=== PATIENT | female | born 1990 | race Caucasian/White ===

== ENCOUNTER 2018-11-23 10:32 | Outpatient (CLI) | payer OTHER ==
--- NOTE | 2018-11-23 13:48 | ULT ---
OBSTETRICAL ULTRASOUND: Date: 11/23/2018 COMPARISON: None. HISTORY: 27-year-old female undergoing assessment of anatomy. TECHNIQUE: Multiplanar grayscale sonographic imaging of the gravid uterus obtained. FINDINGS: Cervical length is approximately 5.2 cm. The physicist light and optics reports a variable presentation, primarily transverse. Placenta is located ante riorly with no evidence for previa or abruption. Umbilical cord, 4 chamber heart view, and intracranial contents appear grossly unremarkable. heart rate is approximately 138 bpm. urinary bladder, kidneys, umbilical cord, stomach, kidneys, and spine are grossly unremarkable. nose and lips appear grossly unremarkable. Amniotic fluid index is 13.6 cm, within normal limits. biometry: BPD 5.1 cm, 21 weeks 4 days Head circumference 19.2 cm, 21 weeks 4 days Abdominal circumference 16.3 cm, 21 weeks 3 days Femur length 3.6 cm, 21 weeks 3 days Average age based on ultrasound is 21 weeks 4 days. Estimated weight is 417 g +/- 61 g. Estimated date of delivery is 04/01/2019. IMPRESSION: Single intrauterine gestation as detailed above. Transcribed Date/Time: 11/23/2018 2:32 PM
== END 2018-11-23 10:33 | disposition home or self-care (01) ==
LOC: BICULT 10:32
DX: Z34.82 Encounter for supervision of other normal pregnancy, second trimester (principal); Z3A.21 21 weeks gestation of pregnancy
CPT/HCPCS: 76805

== ENCOUNTER 2019-03-16 19:23 | Inpatient (IN) | payer OTHER ==
[2019-03-16] MEDS ORDERED: Ondansetron PF 4 MG/2 ML Vial IVP PRN (20:12)
[2019-03-16] MEDS ORDERED: Acetaminophen 500 MG TAB PO PRN (20:12)
[2019-03-16] MEDS ORDERED: hydrALAZINE 20 MG/ML VIAL SLOW IVP PRN (20:12)
[2019-03-16] MEDS ORDERED: Butorphanol Tartrate 1 MG/ML VIAL SLOW IVP PRN (20:12)
[2019-03-16] MEDS ORDERED: Promethazine HCl 25 MG/ML VIAL IM PRN (20:12)
[2019-03-16] MEDS: Lactated Ringer's 1,000 ML IV SCH (21:02)
[2019-03-16 21:03] VITALS: BMI 30.7
[2019-03-16 21:24] LABS: Hemoglobin 11.3 g/dL (12.0-16.0); Mean Corpuscular HGB CONC 33.2 g/dL (32.0-36.0); Mean Corpuscular Hemoglobin 28.8 pg (27.0-31.0); Mean Platelet Volume 9.9 fL (7.4-10.4); Platelet Count 215 thou/uL (130-400); RBC Distribution Width 12.5 % (11.5-14.5); Red Blood Cell (RBC) Count 3.92 mill/uL (4.20-5.40); White Blood Cell (WBC) Count 7.8 thou/uL (4.8-10.8)
[2019-03-16 21:55] LABS: Syphilis Antibody Nonreactive (Nonreactive); Syphilis Antibody Index 0.03 S/CO (<1.00 Non-Reactive)
[2019-03-16 23:12] LABS: HBSAg Index 0.26 S/CO (0-0.99); Hep B Surf Ag Non-Reactive S/CO (NonReactive)
[2019-03-17] MEDS ORDERED: Fentanyl 4 mcg/Bup 0.1% Cadd 100 ML ONE (00:37)
[2019-03-17] MEDS ORDERED: Bupivacaine 0.5% 10 ML VIAL ONE (00:46)
[2019-03-17] MEDS ORDERED: Fentanyl 100 MCG/2 ML VIAL ONE (00:46)
[2019-03-17] MEDS: Lactated Ringer's 1,000 ML IV SCH (00:50)
[2019-03-17] MEDS ORDERED: Acetaminophen 325 MG TAB PO PRN (01:11)
[2019-03-17] MEDS ORDERED: Ondansetron PF 4 MG/2 ML Vial IVP PRN ×2 (01:11→06:51)
[2019-03-17] MEDS ORDERED: diphenhydrAMINE 50 MG/ML VIAL IVP PRN (01:11)
[2019-03-17] MEDS ORDERED: Promethazine HCl 25 MG/ML VIAL IM PRN ×2 (01:11→06:51)
[2019-03-17] MEDS ORDERED: Naloxone HCl 0.4 mg/ml Vial IVP PRN ×2 (01:11)
[2019-03-17] MEDS ORDERED: Lactated Ringer's 500 ML IV PRN (01:11)
[2019-03-17] MEDS ORDERED: ePHEDrine/0.9% NaCl/PF SYRINGE 50 mg/10 ml SLOW IVP PRN (01:11)
[2019-03-17] MEDS ORDERED: Communication Order-Pharmacy FS SCH (01:15)
[2019-03-17] MEDS ORDERED: Fentanyl 4 mcg/Bupivacaine 0.1% Cassette 100 ML EPIDURAL SCH (01:15)
[2019-03-17] MEDS ORDERED: Bupivacaine 0.25% 10 ML VIAL EPIDURAL ONE (01:30)
[2019-03-17] MEDS ORDERED: Fentanyl 100 MCG/2 ML VIAL I-THECAL SCH (01:30)
[2019-03-17] MEDS ORDERED: NS / Oxytocin 40 units/1000ml 1,000 ML ONE ×2 (04:50→06:22)
[2019-03-17] MEDS ORDERED: Milk Of Magnesia 30 ML UDCUP PO PRN (06:51)
[2019-03-17] MEDS ORDERED: Bisacodyl 10 MG SUPP PR PRN (06:51)
[2019-03-17] MEDS ORDERED: Adacel (T-DAP) 0.5 ML SYRINGE IM ONE (06:51)
[2019-03-17] MEDS ORDERED: diphenhydrAMINE 25 MG CAP PO PRN (06:51)
[2019-03-17] MEDS ORDERED: hydrALAZINE 20 MG/ML VIAL SLOW IVP PRN (06:51)
[2019-03-17] MEDS ORDERED: HYDROcodone/Acetaminophen 5/325 mg Tablet PO PRN ×2 (06:51)
[2019-03-17] MEDS ORDERED: NS / Oxytocin 40 units/1000ml 1,000 ML IV SCH (06:51)
[2019-03-17] MEDS: Ibuprofen 800 MG TAB PO SCH ×2 (08:17→16:15)
[2019-03-17] MEDS: Prenatal Vitamin 1 TAB PO SCH (08:17)
[2019-03-17] MEDS: Ferrous Sulfate 325 MG TAB PO SCH ×2 (08:18→17:22)
[2019-03-17] MEDS: Docusate Calcium (SURFAK) 240 MG CAP PO SCH ×2 (08:18→20:37)
[2019-03-18] MEDS: Ibuprofen 800 MG TAB PO SCH ×3 (01:42→14:21)
[2019-03-18 05:22] LABS: Hemoglobin 11.2 g/dL (12.0-16.0); Mean Corpuscular HGB CONC 33.5 g/dL (32.0-36.0); Mean Corpuscular Volume 86.7 fL (78.0-98.0); Mean Platelet Volume 9.7 fL (7.4-10.4); Platelet Count 199 thou/uL (130-400); RBC Distribution Width 12.3 % (11.5-14.5); Red Blood Cell (RBC) Count 3.85 mill/uL (4.20-5.40); White Blood Cell (WBC) Count 8.5 thou/uL (4.8-10.8)
[2019-03-18] MEDS: Prenatal Vitamin 1 TAB PO SCH (08:08)
[2019-03-18] MEDS: Docusate Calcium (SURFAK) 240 MG CAP PO SCH (08:08)
[2019-03-18] MEDS: Ferrous Sulfate 325 MG TAB PO SCH ×2 (08:08→17:42)
[2019-03-18 08:45] VITALS: BP 117/79; TEMP 97.6
== END 2019-03-18 19:08 | disposition home or self-care (01) | DRG 807 ==
LOC: L&D/OP 19:23 → L&D 21:00 → 3SW 03-17 14:01
PROVIDERS: ADMIT Family Medicine; ATTEND Family Medicine
PROC: 10E0XZZ Delivery of Products of Conception, External Approach (ICD-10-PCS; principal; 2019-03-17)
DX: O80 Encounter for full-term uncomplicated delivery (principal); Z37.0 Single live birth; Z3A.37 37 weeks gestation of pregnancy
CPT/HCPCS: 36415; 51702; 85027; 86780; 86850; 86900; 86901; 87340; 99285; J3010; J3490